=== PATIENT | male | born 2000 | race Asian ===

== ENCOUNTER → 2018-04-03 12:24 | Emergency (ER) | payer SELFPAY ==
[~2018-04-03 12:24] MED LIST: hydrOXYzine HCL TAB* 50 MG PO ONE
--- NOTE | 2018-04-03 12:38 | ED ---
Psychiatric Complaint - HPI Summary HPI Summary: Patient is a 17 y/o male SAVANAH who presents to the ED c/o self-harm ideation. He is a [employer] student and has been under a lot of stress recently due to upcoming exams. Today he decided to go to [facility] to talk about his stress before his exams. As per patient, as he was talking he began to spiral downward and became more and more upset. The staff at [employer] suggested he come here for further evaluation and professional help. He feels better after talking to someone. Patient has had recent thoughts of self-harm and SI. He currently pulls his hair as a form of self-harm, which gives him mild stress relief. Patient has thought about using a knife, but states that its too messy or bloody. He does not want to do any self-harm that will leave a permanent ernie because hes not stupid. Patient has never tried to kill himself before. Last year he thought about drowning himself or using a letter cigar packer and picker, but again did not want to do this because its too messy. PMHx anxiety and possible depression. He is currently not on any medications. Patient has been sleeping and eating normally, and denies any weight loss. - History Of Current Complaint Time Seen by Provider: 04/03/18 12:25 Hx Obtained From: Patient Onset/Duration: Gradual Onset, Lasting Weeks, Still Present Timing: Constant Character: Depressed, Anxious - Stressed Aggravating Factor(s): Recent Stress - Exams Alleviating Factor(s): Counseling Associated Signs And Symptoms: Positive: Negative Has Suicidal: Reports: Thoughts Has Homicidal: Denies: Thoughts - Allergies/Home Medications Allergies/Adverse Reactions: Allergies Allergy/AdvReac Type Severity Reaction Status Date / Time No Known Allergies Allergy Verified 04/03/18 12:36 PMH/Surg Hx/FS Hx/Imm Hx Endocrine/Hematology History: Denies: Hx Diabetes Cardiovascular History: Denies: Hx Hypertension Psychiatric History: Reports: Hx Anxiety, Hx Depression - Possible Denies: Hx Suicide Attempt - Surgical History Surgery Procedure, Year, and Place: None. Infectious Disease History: No Infectious Disease History: Denies: Traveled Outside the [place] in Last 30 Days - Family History Known Family History: Positive: Diabetes Negative: Hypertension - Social History Occupation: Student Alcohol Use: None Hx Substance Use: No Substance Use Type: Reports: None Hx Tobacco Use: No Smoking Status (MU): Never Smoked Tobacco Review of Systems Positive: Other - NEGATIVE: weight loss. Negative: Fever Positive: Anxious, Other - SI, stressed, self-harm ideation All Other Systems Reviewed And Are Negative: Yes Physical Exam - Summary Physical Exam Summary: VITAL SIGNS: Reviewed. GENERAL: Patient is a well-developed and nourished MALE who is lying comfortable in the stretcher. Patient is not in any acute respiratory distress. HEAD AND FACE: No signs of trauma. No ecchymosis, hematomas or skull depressions. No sinus tenderness. EYES: PERRLA, EOMI x 2, No injected conjunctiva, no nystagmus. EARS: Hearing grossly intact. Ear canals and tympanic membranes are within normal limits. MOUTH: Oropharynx within normal limits. NECK: Supple, trachea is midline, no adenopathy, no JVD, no carotid bruit, no c- spine tenderness, neck with full ROM. CHEST: Symmetric, no tenderness at palpation LUNGS: Clear to auscultation bilaterally. No wheezing or crackles. CVS: Regular rate and rhythm, S1 and S2 present, no murmurs or gallops appreciated. ABDOMEN: Soft, non-tender. No signs of distention. No rebound no guarding, and no masses palpated. Bowel sounds are normal. EXTREMITIES: FROM in all major joints, no edema, no cyanosis or clubbing. NEURO: Alert and oriented x 3. No acute neurological deficits. Speech is normal and follows commands. SKIN: Dry and warm PSYCH: Depressed, quiet. Has suicidal thoughts but no plan. No homicidal thoughts or plan. No signs of psychosis or pressure speech. No tangential speech. Triage Information Reviewed: Yes Vital Signs On Initial Exam: Initial Vitals Temp Pulse Resp BP Pulse Ox 98.5 F 76 14 112/64 95 04/03/18 12:29 04/03/18 12:29 04/03/18 12:29 04/03/18 12:29 04/03/18 12:29 Vital Signs Reviewed: Yes Diagnostics - Vital Signs Vital Signs Temp Pulse Resp BP Pulse Ox 04/03/18 12:29 98.5 F 76 14 112/64 95 - Laboratory Result Diagrams: 04/03/18 13:10 04/03/18 13:10 Lab Statement: Any lab studies that have been ordered have been reviewed, and results considered in the medical decision making process. Re-Evaluation - Re-Evaluation First Eval Re-Evaluation Time: 14:00 Change: Unchanged Comment: Patient is medically cleared for MHE. Course/Dx - Course Assessment/Plan: Patient is a 17 y/o male BIBA who presents to the ED c/o self- harm ideation. He is a [employer] student and has been under a lot of stress recently due to upcoming exams. Today he decided to go to [facility] to talk about his stress before his exams. As per patient, as he was talking he began to spiral downward and became more and more upset. The staff at [employer] suggested he come here for further evaluation and professional help. He feels better after talking to someone. Patient has had recent thoughts of self-harm and SI. He currently pulls his hair as a form of self-harm, which gives him mild stress relief. Patient has thought about using a knife, but states that it s too messy or bloody. He does not want to do any self-harm that will leave a permanent ernie because hes not stupid. Patient has never tried to kill himself before. Last year he thought about drowning himself or using a letter cigar packer and picker, but again did not want to do this because its too messy. PMHx anxiety and possible depression. He is currently not on any medications. Patient has been sleeping and eating normally, and denies any weight loss. Blood work w/o a significant abnormality. He is medically cleared. He is awaiting for a MHE. Patient is hemodynamically stable and A+O x 3. Dr. Henriquez (Psychiatry) saw and examined the patient and clear the patient and recommends to discharge the patient home with outpatient follow up. - Differential Dx/Clinical Impression Differential Diagnosis/HQI/PQRI: Positive: Anxiety, Depression, Suicidal Ideation Provider Diagnosis: Depression - Physician Notifications Discussed Care Of Patient With: Harish Henriquez Time Discussed With Above Provider: 16:40 Instructed by Provider To: Other - Patient is safe for discharge with a final dx of depression NOS. Discharge - Sign-Out/Discharge Documenting (check all that apply): Patient Departure - Discharge - Discharge Plan Condition: Stable Disposition: HOME Prescriptions: hydrOXYzine HCL TAB* [Atarax TAB 50 MG *] 50 mg PO QID PRN #15 tab PRN Reason: Anxiety Patient Education Materials: Depression (ED), Help Prevent Suicide (ED), Anxiety (ED) Referrals: [facility] [Outside] [facility] [Outside] (Please follow up with your scheduled appointment Apr.05 at 9am, and Apr 18 at 3pm) [facility] [Z.[email or web address], APPLICATION, OTHER] - 3 Days Additional Instructions: RETURN TO THE ED FOR ANY WORSENING OR NEW SYMPTOMS. - Billing Disposition and Condition Condition: STABLE Disposition: Home - Attestation Statements Document Initiated by Scribe: Yes Documenting Scribe: Nannette Dubois Provider For Whom Vaishaliibe is Documenting (Include Credential): Ahmet Ji MD Scribe Attestation: INannette, scribed for Ahmet Ji MD on 04/05/18 at 0931. Scribe Documentation Reviewed: Yes Provider Attestation: The documentation as recorded by the Nannette garcia accurately reflects the service I personally performed and the decisions made by me, Ahmet Ji MD
[2018-04-03 13:02] LABS: Urine Appearance Cloudy; Urine Blood Negative (Negative); Urine Color Yellow; Urine Ketones Negative (Negative); Urine Protein Negative (Negative); Urine Specific Gravity 1.027 (1.010-1.030); Urine Urobilinogen Negative (Negative)
[2018-04-03 13:21] LABS: ABS Basophils 0 10^3/ul (0-0.2); ABS Eosinophils 0.1 10^3/ul (0-0.6); ABS Lymphocytes 2.2 10^3/ul (1.0-4.8); ABS Monocytes 0.4 10^3/ul (0-0.8); ABS Nucleated RBC 0 10^3/ul; Eosinophil % 1.2 % (0-6); Hematocrit 44 % (42-52); Hemoglobin 14.8 g/dl (14.0-18.0); Lymphocyte % 28.2 % (25-47); Mean Corpuscular HGB Conc 34 g/dl (31-36); Mean Corpuscular Hemoglobin 27 pg (27-31); Mean Corpuscular Volume 80 fL (80-94); Mean Platelet Volume 7.4 um3 (7.4-10.4); Nucleated Red Blood Cells % 0.1; Platelet Count 186 10^3/ul (150-450); Red Blood Count 5.52 10^6/ul (4.00-5.40); Red Cell Distribution Width 14 % (10.5-15); White Blood Count 7.7 10^3/ul (3.5-10.8)
[2018-04-03 13:33] LABS: EGFR Non-African American 117.7 (>60)
[2018-04-03 16:29] VITALS: BP 105/63
== END | disposition home or self-care (01) ==
LOC: ED 12:24
DX: F32.9 Major depressive disorder, single episode, unspecified (principal); R45.851 Suicidal ideations; F41.9 Anxiety disorder, unspecified
CPT/HCPCS: 36415; 80053; 80307; 80320; 80329; 81003; 84443; 85025; 99284; A9270-GY; G0480